=== PATIENT | male | born 1950 | race Caucasian/White ===

== ENCOUNTER → 2023-07-26 | Outpatient (CLI) | payer OTHER ==
--- NOTE | 2023-07-26 16:00 | Diagnostic Imaging Report ---
INDICATION: Pain of right knee. COMPARISON: None. FINDINGS: Four views of the right knee joint demonstrate no acute fracture or dislocation. No focal osseous lesions are seen. Small joint effusion is noted. There is moderate osteoarthritic change as well. No unexpected radiopaque foreign bodies are seen. IMPRESSION: 1. No acute fracture or dislocation in the right knee. 2. Small joint effusion. 3. Moderate osteoarthritis. Dictated by: Dictated on workstation # [id number]
== END ==
LOC: ORTHO 10:48
PROVIDERS: ATTEND Orthopaedic Surgery
DX: M17.11 Unilateral primary osteoarthritis, right knee (principal)
CPT/HCPCS: 73564; G0463